=== PATIENT | female | born 1980 | race Caucasian/White ===

== ENCOUNTER 2021-12-23 19:08 | Outpatient (REF) | payer OTHER, SELFPAY | END 2021-12-23 19:09 | disposition home or self-care (01) | LOC: LBN 19:08 | PROVIDERS: Visit Provider Physician Assistant | DX: J02.9 Acute pharyngitis, unspecified (principal) | CPT/HCPCS: 87070 ==

== ENCOUNTER 2022-05-28 10:50 | Outpatient (REF) | payer OTHER, SELFPAY ==
[2022-05-28 13:38] LABS: Bilirubin Negative (Negative); Blood Moderate (Negative); Clarity Cloudy (Clear); Glucose Negative (Negative); Ketones Negative (Negative); Leukocyte Esterase Trace (Negative); Nitrite Negative (Negative); Urobilinogen 0.2 mg/dL (Up to 0.2); pH 8.5 (5-8)
[2022-05-28 13:49] LABS: Bacteria Few HPF (Negative); C & S Indicated? Yes; Casts 0-2 Hyaline LPF (Negative); Crystals Few Amorphous HPF (Negative); Epithelial Cells Few HPF (Negative); Mucus Trace (Negative); RBC >50 HPF (0-2)
== END 2022-05-28 10:51 | disposition home or self-care (01) ==
LOC: LBN 10:50
PROVIDERS: Visit Provider Physician Assistant
DX: R39.89 Other symptoms and signs involving the genitourinary system (principal); R35.0 Frequency of micturition; R30.0 Dysuria; N39.0 Urinary tract infection, site not specified
CPT/HCPCS: 81003; 81015; 87086

== ENCOUNTER 2022-08-23 02:06 | Outpatient (CLI) | payer OTHER, SELFPAY ==
[2022-08-23 14:47] LABS: Abs Immature Grans 0.03 10^3/uL (0.0-0.06); Absolute Basophil Count 0.03 10^3/uL (0.0-0.2); Absolute Eosinophil Count 0.09 10^3/uL (0.0-0.7); Absolute Lymphocyte Count 1.18 10^3/uL (1.2-3.4); Absolute Monocyte Count 0.51 10^3/uL (0.1-0.8); Absolute Neutrophil Count 5.89 10^3/uL (1.2-6.7); Basophils % 0.4; Eosinophils % 1.2; HCT 33.6 % (36.0-46.0); HGB 11.8 g/dL (11.2-15.7); Immature Grans % 0.4; Lymphocytes % 15.3; MCH 31.6 pg (27.0-33.0); MCHC 35.1 % (32.0-36.0); MCV 90 fL (80-95); MPV 10.3 fL (8.0-11.0); Monocytes % 6.6; Neutrophils % 76.1; Platelet Count 170 10^3/uL (130-400); RBC 3.73 10^6/uL (3.93-5.22); RDW 12.3 % (11.7-14.6); RDW-SD 40.3 fL; WBC 7.73 10^3/uL (4.4-10.8)
[2022-08-24 10:06] LABS: HIV-1/2 Ag & Ab Screen Negative (Negative)
[2022-08-24 10:11] LABS: Hepatitis C Ab w Rflx HCV PCR Negative (Negative)
[2022-08-24 10:51] LABS: Hepatitis B Surface Ag Negative (Negative)
[2022-08-24 11:37] LABS: Varicella IgG Antibody Positive (See Note)
[2022-08-24 11:40] LABS: Rubella IgG Ab (UVM) Positive (See Note)
[2022-08-26 15:20] LABS: Syphilis IgG w/Reflex Nonreactive (Nonreactive)
== END 2022-08-23 02:07 | disposition home or self-care (01) ==
LOC: LBO 02:09
PROVIDERS: Advanced Practice Midwife; Visit Provider Advanced Practice Midwife
DX: Z3A.10 10 weeks gestation of pregnancy; O09.521 Supervision of elderly multigravida, first trimester
CPT/HCPCS: 36415; 82306; 86787; 86803; 86850; 86900; 86901; 87340; 87389; 85025; 86762; 86780

== ENCOUNTER 2022-08-23 14:23 | Outpatient (REF) | payer OTHER, SELFPAY ==
[2022-08-23 14:53] LABS: *AMPHETAMINES SCREEN URINE Negative (Negative); *BARBITURATES SCREEN URINE Negative (Negative); *BENZODIAZEPINES SCREEN URINE Negative (Negative); Cannabinoids THC Negative (Negative); Cocaine Screen,Urine Negative (Negative); METHADONE URINE SCREEN Negative (Negative); OPIATES URINE SCREEN Negative (Negative); Tricyclic Antidepressants Negative (Negative)
[2022-08-30 19:31] LABS: Buprenorphine Negative ng/mL (Cutoff: 5.0); Norbuprenorphine Negative ng/mL (Cutoff: 2.5)
== END 2022-08-23 14:24 | disposition home or self-care (01) ==
LOC: LBN 14:23
PROVIDERS: Visit Provider Advanced Practice Midwife
DX: Z34.91 Encounter for supervision of normal pregnancy, unspecified, first trimester (principal); Z3A.10 10 weeks gestation of pregnancy
CPT/HCPCS: 80307; 80348; 87086

== ENCOUNTER 2022-08-26 15:02 | Emergency (ER) | payer OTHER, SELFPAY ==
[2022-08-26 15:04] VITALS: BP 113/72; PULSE 88; RESP 20; TEMP 36.9; O2SAT 99
--- NOTE | 2022-08-26 15:31 | ED.GENADUL_ITS ---
Discharge Plan Disposition Patient Disposition: Home Condition: Stable Discharge Details Clinical Impression: Strain of lumbar paraspinous muscle Primary Care Provider: Unknown,Unknown ED Provider: Ekaterina Oh Home Meds and New Rx's Prescriptions: New cyclobenzaprine 10 mg tablet 10 mg PO TID PRN (Reason: muscle spasm) Qty: 10 0RF No Action PNV 119-iron fum-folic acid 29 mg iron- 1 mg tablet PO Fish Oil 100-160-1,000 mg capsule PO 1XD Patient Comments: 08/01/22- pt unsure of dose Discharge Instructions Instructions: Low Back Strain (ED) Additional Instructions: Alternate ice and heat. No evidence of blood or urine today. Please take Tylenol as needed with food every 4-6 hours. Use the Flexeril as directed. You may also get lidocaine patches which you can obtain [id number]. It Follow up with primary care provider in 3-5 days. Return to ED sooner if any worsening or concerns. Increase oral fluids. Discharge Data Discharge Date/Time-TO BE ENTERED AT DEPARTURE: 08/26/22 16:54 Medical Decision Making 41-year-old female 3 para 1 approximately 11 weeks presents to the ER with chief complaint of right-sided flank pain which is acutely worsened since this morning. Patient reports that she thought a few days ago she may have pulled her back and then this morning was putting on some yoga pants when she had acute increase in pain. Worse when she moves. She describes it as sharp and shooting. Denies any problems urinating or burning with urination no vaginal bleeding discharge denies any nausea vomiting diarrhea. She does have a history of nausea with this but that has been lessening. She has been taking ibuprofen with little to no relief. Patient has had care for this . At this time urinalysis, Tylenol lidocaine patch and Flexeril ordered. Will consider outpatient ultrasound if blood in urine to rule out kidney stone. Differential diagnosis includes but not limited to UTI, pyelonephritis, musculoskeletal strain, kidney stone, Urinalysis shows no red blood cells no blood trace protein trace ketones no leukocytes or nitrites. This rules out UTI kidney stone most likely strain. Patient reevaluation, she reports feeling somewhat better. History of urinalysis results. They do not feel the elevated this time. We will give the Flexeril prescription for Flexeril. Discussed home care instructions verbalized understanding. This text was generated using [employer] system, please disregard any oddities of phrase or misspellings. HPI General Mode of arrival: ambulatory . Date/Time Provider Initiated Documentation: 08/26/22 15:17 . Limitations to Documentation: no limitations . Information obtained by: patient, RN notes reviewed and old records reviewed . HPI Narrative: 41-year-old female 3 para 1 approximately 11 weeks presents to the ER with chief complaint of right-sided flank pain which is acutely worsened since this morning. Patient reports that she thought a few days ago she may have pulled her back and then this morning was putting on some yoga pants when she had acute increase in pain. Worse when she moves. She describes it as sharp and shooting. Denies any problems urinating or burning with urination no vaginal bleeding discharge denies any nausea vomiting diarrhea. She does have a history of nausea with this but that has been lessening. She has been taking ibuprofen with little to no relief. Patient has had care for this . Related Data Home Medications Medication Instructions Recorded Confirmed omega 4-ntw-lwh-fish oil 100 cap PO 1XD 08/01/22 08/01/22 mg-160 mg-1,000 mg capsule (Fish Oil) vitamins no.119-iron tab PO 08/01/22 08/23/22 fumarate 29 mg-folic acid 1 mg tablet cyclobenzaprine 10 mg tablet 10 mg PO TID PRN muscle spasm #10 08/26/22 tabs Previous Rx's Medication Instructions Recorded cyclobenzaprine 10 mg tablet 10 mg PO TID PRN muscle spasm #10 08/26/22 tabs Allergies Allergy/AdvReac Type Severity Reaction Status Date / Time No Known Allergies Allergy Verified 08/26/22 15:11 General Stated Complaint: FlankPain EARNEST: 3 Review of Systems All systems reviewed & are unremarkable except as noted in HPI and below Musculoskeletal Musculoskeletal: Reports back pain PFSH All Active Problems (Updated 08/26/22 @ 16:28 by Ekaterina Oh NP) Strain of lumbar paraspinous muscle (Acute) History of shingles (Acute) on her face, 2019 (Acute) Dental root implant present (Acute) no anesthesia no problems Medical History (Updated 08/26/22 @ 16:28 by Ekaterina Oh NP) Missed menses Family History Maternal Grandfather Stroke Osteoporosis Parkinson disease Paternal Grandfather Stroke Hypertension Paternal Aunt Breast cancer Social History Smoking/Tobacco Use Status: Former Tobacco Use Quit Date: 07/18/22 Smoking risk assessment performed?: Yes Alcohol Intake: former Substance use type: former substance user Date of last use: marijuana several times weekly until + UPT Adopted: No Caregiver/Support person: No Foster care: No Household members: spouse and children Housing: apartment Number of Children: 1 Do you need help understanding health information?: Never Pets and animals: Yes Pets and animals: dog(s) Sexually active: Yes Do you think of yourself as: straight/heterosexual What is your relationship status?: living with partner How often do you talk on the phone with friends or family?: twice per week How often do you get together with friends or relatives?: twice per week Panel score (0-1 are the most socially isolated patients): 2 What type of physical activity do you participate in: walking and yoga Duration: 30-45 minutes/day Special deisy needs: No Seatbelt use: always Helmet use: Yes Drive intox 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 Date GA/Weeks # Preg Succ Route Wgt Sex Labor Lgth Anesth esia Location [facility] 10/16/15 37 No Yes vaginal 3033.399 g Male 12 [facility] Delivery Date: 10/16/15 Last Updated by: Ines Mccormick Nmsalena , unmedicated labor, Gregory Exam Narrative Exam Narrative: Constitutional: Alert and oriented x3. Appears stated age. Normal body habitus. Head: Normocephalic, no trauma. Eyes: Pupils PERRL, Red reflex noted, EOM's intact. Eyelids symmetrical without lesions, discharge, or swelling. ENT: Bilateral TM's WNL, External ear normal to inspection, no mastoid TTP, swelling, or erythema, Nasal turbinates WNL, no nasal discharge. Normal dentition, Posterior pharynx WNL, no exudate. Chest: RRR, Normal S1, S2, distal pulses intact. Resp: Lungs clear to auscultation bilaterally, no wheezes, rales, or rhonchi. Abdomen: Soft, non-distended, Normoactive bowel sounds all 4 quads. Musculoskeletal: , 5/5 strength to all four extremities. Tenderness to the right flank. Supraspinous tenderness no midline tenderness. Skin: No suspicious rashes or lesions. Capillary refill less than 2 sec. Neurologic: Cranial nerves II-XII intact. Alert and oriented x 3. Motor: No deficits noted. Sensory: Intact bilaterally all 4 extremities. Reflexes: DTR's intact bilaterally.. Hematologic/Lymphatic: No ecchymosis, no lymphadenopathy. Course Vital Signs Vital signs: Vital Signs Temperature 36.9 C 08/26/22 15:04 Pulse 88 08/26/22 15:04 Respiratory Rate 20 08/26/22 15:04 Blood Pressure 113/72 08/26/22 15:04 Pulse Oximetry 99 08/26/22 15:04 Temperature 36.9 C 08/26/22 15:04 Temperature Source Oral 08/26/22 15:04 Pulse 88 08/26/22 15:04 Respiratory Rate 20 08/26/22 15:04 Respiratory Effort Normal 08/26/22 15:13 Blood Pressure 113/72 08/26/22 15:04 Blood Pressure Position Sitting 08/26/22 15:04 Pulse Oximetry 99 08/26/22 15:04 Oxygen Delivery Method Room Air 08/26/22 15:04 Oxygen Flow Rate 0 08/26/22 15:04 Pain Level 9 08/26/22 15:04
[2022-08-26] MEDS: Acetaminophen 325 MG TAB 650 MG PO (15:46)
[2022-08-26] MEDS: Cyclobenzaprine 10 MG TAB PO (15:47)
[2022-08-26] MEDS: Lidocaine 5% Patch 1 PATCH TP (15:47)
[2022-08-26 15:50] LABS: Bilirubin Negative (Negative); Blood Negative (Negative); Clarity Clear (Clear); Glucose Negative (Negative); Ketones Trace mg/dL (Negative); Leukocyte Esterase Negative (Negative); Nitrite Negative (Negative); Specific Gravity 1.015 (1.005-1.025); Urobilinogen 0.2 mg/dL (Up to 0.2); pH >= 9.0 (5-8)
[2022-08-26 16:18] LABS: Bacteria Rare HPF (Negative); C & S Indicated? No; Crystals Negative HPF (Negative); Epithelial Cells Rare HPF (Negative); Mucus Trace (Negative); RBC Negative HPF (0-2); WBC 0-2 HPF (0-5)
[2022-08-26] MEDS: Cyclobenzaprine 10 MG TAB, 3 TABS/BTL PO (16:53)
== END 2022-08-26 16:54 | disposition home or self-care (01) ==
PROVIDERS: Emergency Provider Registered Nurse Emergency
DX: O99.891 Other specified diseases and conditions complicating pregnancy (principal); Z3A.11 11 weeks gestation of pregnancy; O09.521 Supervision of elderly multigravida, first trimester
CPT/HCPCS: 99283; 81003; 81015; 99284

== ENCOUNTER 2022-09-20 10:49 | Outpatient (REF) | payer OTHER, SELFPAY ==
[2022-09-21 14:10] LABS: Chlamydia Result Negative (Negative); GC Result Negative (Negative)
== END 2022-09-20 10:50 | disposition home or self-care (01) ==
LOC: LBN 10:49
PROVIDERS: Visit Provider Advanced Practice Midwife
DX: Z34.92 Encounter for supervision of normal pregnancy, unspecified, second trimester (principal); Z3A.14 14 weeks gestation of pregnancy; Z11.3 Encounter for screening for infections with a predominantly sexual mode of transmission
CPT/HCPCS: 87491; 87591

== ENCOUNTER 2022-11-30 12:13 | Outpatient (REF) | payer OTHER, SELFPAY | END 2022-11-30 12:14 | disposition home or self-care (01) | LOC: LBN 12:13 | PROVIDERS: Visit Provider Family Medicine | DX: K52.9 Noninfective gastroenteritis and colitis, unspecified (principal); R19.7 Diarrhea, unspecified | CPT/HCPCS: 87329 ==

== ENCOUNTER 2022-12-27 04:07 | Outpatient (CLI) | payer OTHER, SELFPAY ==
[2022-12-27 10:57] LABS: Glucose,1 Hr (Glucola) 89 mg/dL (80-140)
[2022-12-27 10:59] LABS: HCT 36.7 % (36.0-46.0); HGB 12.4 g/dL (11.2-15.7); MCH 31.8 pg (27.0-33.0); MCHC 33.8 % (32.0-36.0); MCV 94 fL (80-95); MPV 10.6 fL (8.0-11.0); Platelet Count 155 10^3/uL (130-400); RDW 13.3 % (11.7-14.6); RDW-SD 45.2 fL; WBC 7.96 10^3/uL (4.4-10.8)
== END 2022-12-27 04:08 | disposition home or self-care (01) ==
LOC: LBO 04:08
PROVIDERS: Visit Provider Advanced Practice Midwife
DX: Z34.93 Encounter for supervision of normal pregnancy, unspecified, third trimester (principal)
CPT/HCPCS: 36415; 82950; 85027

== ENCOUNTER 2023-01-28 02:03 | Outpatient (CLI) | payer OTHER, SELFPAY ==
--- NOTE | 2023-01-28 07:45 | DI.US_ITS ---
Exam(s) US OB EVERETTE WEIGHT EXAM: US OB EVERETTE WEIGHT CLINICAL HISTORY: interval growth,advanced maternal age,O09.522. TECHNIQUE: Transabdominal obstetrical ultrasound performed. COMPARISON: US POCUS EXAM from 08/01/2022 FINDINGS: Number of fetuses: 1 position: CEPHALIC with the spine located posteriorly. Placental location: There is a grade 2 anterior placenta. No evidence of previa. BIOMETRIC DATA: BPD: 8.84cm, 35weeks 5days. This is greater than the 97th percentile. HC: 33.47cm, 38weeks 2days. This is greater than the 97th percentile. AC: 29.67cm, 33weeks 5days FL: 6.36cm, 32weeks 6days EFW: 2,344.56g, 5lb 4.05oz, 74.7% Composite Age: 35weeks 1day TREVOR: 03/03/2023 Heart Rate: 130bpm Amniotic fluid index: 26.82cm. The EVERETTE suggest polyhydramnios. IMPRESSION: 1. Single live intrauterine gestation as above. 2. Estimated weight is 2345gms. This is the 75th percentile. 3. Amniotic fluid index is 26.8 cm. This is suggestive of polyhydramnios. DATA REPOSITORY:
[2023-01-28 12:12] VITALS: BP 113/68; PULSE 55; TEMP 36.6
== END 2023-01-28 12:19 | disposition home or self-care (01) ==
LOC: DI 02:03
PROVIDERS: Visit Provider Advanced Practice Midwife
DX: O09.522 Supervision of elderly multigravida, second trimester (principal)
CPT/HCPCS: 76816

== ENCOUNTER 2023-01-28 11:26 | Outpatient (CLI) | payer OTHER, SELFPAY ==
[2023-01-28 12:34] VITALS: BP 113/68; PULSE 55; TEMP 36.6
[2023-01-28 12:38] VITALS: BP 113/68; PULSE 55; TEMP 36.6
--- NOTE | 2023-01-28 12:38 | W.OBNST ---
Date of service: 01/28/23 Time of Service: 12:38 NST Evaluation Reason for NST Reasons for Nonstress Test: POLYHYDRAMNIOS Gestational Age Gestational Age in Weeks and Days: 32 Weeks and 5Days Test and Monitor Explained Test/Monitor Explained: Test Explained, Monitor Explained and Patient Verbalized Understanding Vital Signs Blood Pressure: 113/68 Pulse: 55 Temperature: 97.9 F Urine Results Urine Protein: Negative Urine Ketones: Negative Urine Glucose: Negative Urine Blood: Negative NST Information Date on Monitor: 01/28/23 Time on Monitor: 11:26 Date off Monitor: 01/28/23 Time off Monitor: 12:08 Total Time on Monitor: 42 NST Interventions: PO Hydration and Notify Provider Contraction Frequency: 0 NST Evaluation Patient States Movement: Present FHR Baseline: 135 Variability: Moderate 6-25 bpm Accelerations: 15x15 Decelerations: None NST Results: Reactive Note Ultrasound Done: N/A. NST Note Note: Weekly NST's Repeat EVERETTE in 2-3 wks. NST Reviewed and Verified by: Ines Mccormick
== END 2023-01-28 12:20 ==
LOC: BCD 11:28 → OBS 11:28
PROVIDERS: Visit Provider Advanced Practice Midwife
DX: O40.3XX1 Polyhydramnios, third trimester, fetus 1 (principal); Z3A.32 32 weeks gestation of pregnancy
CPT/HCPCS: 59025

== ENCOUNTER → 2023-02-04 03:21 | Outpatient (CLI) | payer OTHER, SELFPAY ==
--- NOTE | 2023-02-04 07:15 | DI.US_ITS ---
Exam(s) US OB EVERETTE WEIGHT EXAM: US OB EVERETTE WEIGHT CLINICAL HISTORY: f/u everette,o40.3XX0,POLYHYDRAMNIOS. TECHNIQUE: Transabdominal obstetrical ultrasound was performed. COMPARISON: US US OB EVERETTE WEIGHT from 01/28/2023 FINDINGS: There is a single viable intrauterine gestation with cardiac activity identified-143 bpm The fetus is presently in cephalic position . Amniotic fluid: There is polyhydramnios again noted with EVERETTE = 25.76 cm, similar to the prior recent study. Placental location: The placenta is anterior grade 2,with no evidence of placenta previa. Dating parameters place this at approximately 35 weeks and 6 days gestational age, implying TREVOR of 03/05/2023. BPD measures 37 weeks and 0 days HC measures 37 weeks and 3 days AC measures 35 weeks and 0 days FL measures 34 weeks and 0 days Estimated weight is 2608 gm-5 pounds 12 ounces Fetus is at the 78th percentile on the Hadlock scale. IMPRESSION:: Viable 3rd trimester gestation, as described above. Polyhydramnios is again evident. DATA REPOSITORY:
== END ==
PROVIDERS: Visit Provider Advanced Practice Midwife
DX: O09.523 Supervision of elderly multigravida, third trimester (principal); O40.3XX0 Polyhydramnios, third trimester, not applicable or unspecified
CPT/HCPCS: 76816

== ENCOUNTER 2023-02-04 08:53 | Outpatient (CLI) | payer OTHER, SELFPAY ==
[2023-02-04 09:18] VITALS: BP 120/68; PULSE 81
[2023-02-04 10:10] VITALS: BP 120/68; PULSE 81; TEMP 36.4
--- NOTE | 2023-02-04 10:47 | W.OBNST ---
Date of service: 02/04/23 Time of Service: 10:48 NST Evaluation Reason for NST Reasons for Nonstress Test: POLYHYDRAMNIOS Gestational Age Gestational Age in Weeks and Days: 33 Weeks and 5Days Test and Monitor Explained Test/Monitor Explained: Test Explained, Monitor Explained and Patient Verbalized Understanding Vital Signs Blood Pressure: 120/68 Pulse: 81 Temperature: 97.5 F Urine Results Urine Protein: Negative Urine Ketones: Negative Urine Glucose: Negative Urine Blood: Negative NST Information Time on Monitor: 09:16 Date off Monitor: 02/04/23 Time off Monitor: 09:42 NST Interventions: Notify Provider Contraction Frequency: 0 NST Evaluation Patient States Movement: Present FHR Baseline: 145 Variability: Moderate 6-25 bpm Accelerations: 15x15 Decelerations: None NST Results: Reactive Note Ultrasound Done: N/A. NST Note Note: Weekly NST due to polyhydramnios. Reactive NST US today. EFW 5-12, EVERETTE 25.76 Return to office and NST in 1 weeks. NST Reviewed and Verified by: Frieda Berger
[2023-02-04 10:48] VITALS: BP 120/68; PULSE 81; TEMP 36.4
== END 2023-02-04 09:50 | disposition home or self-care (01) ==
LOC: BCD 08:54 → OBS 09:12
PROVIDERS: Visit Provider Advanced Practice Midwife
DX: O40.3XX1 Polyhydramnios, third trimester, fetus 1 (principal); Z3A.34 34 weeks gestation of pregnancy
CPT/HCPCS: 59025

== ENCOUNTER 2023-02-11 09:01 | Outpatient (CLI) | payer OTHER, SELFPAY ==
[2023-02-11 10:09] VITALS: BP 120/72; PULSE 73; TEMP 36.7
[2023-02-11 10:39] VITALS: BP 120/72; PULSE 73
--- NOTE | 2023-02-15 09:33 | W.OBNST ---
Date of service: 02/11/23 Time of Service: 11:38 NST Evaluation Reason for NST Reasons for Nonstress Test: POLYHYDRAMNIOS Gestational Age Gestational Age in Weeks and Days: 35 Weeks and 0Days Test and Monitor Explained Test/Monitor Explained: Test Explained, Monitor Explained and Patient Verbalized Understanding Vital Signs Blood Pressure: 120/72 Pulse: 73 Temperature: 98.1 F NST Information Date on Monitor: 02/11/23 Time on Monitor: 10:10 Date off Monitor: 02/11/23 Time off Monitor: 10:40 Total Time on Monitor: 30 NST Interventions: PO Hydration NST Evaluation Patient States Movement: Present FHR Baseline: 130 Variability: Moderate 6-25 bpm Accelerations: 15x15 Decelerations: None NST Results: Reactive Note Ultrasound Done: N/A. NST Note Note: NST is reactive and reassuring. RTO as scheduled. NST Reviewed and Verified by: Frieda Cazares
[2023-02-15 09:34] VITALS: BP 120/72; PULSE 73; TEMP 36.7
== END 2023-02-11 10:40 | disposition home or self-care (01) ==
LOC: BCD 09:01 → OBS 10:08
PROVIDERS: Visit Provider Advanced Practice Midwife
DX: O40.3XX0 Polyhydramnios, third trimester, not applicable or unspecified (principal); O09.513 Supervision of elderly primigravida, third trimester; Z3A.35 35 weeks gestation of pregnancy
CPT/HCPCS: 59025

== ENCOUNTER → 2023-02-18 01:30 | Outpatient (CLI) | payer OTHER, SELFPAY ==
--- NOTE | 2023-02-18 07:15 | DI.US_ITS ---
Exam(s) US OB EVERETTE WEIGHT EXAM: US OB EVERETTE WEIGHT CLINICAL HISTORY: polyhydramnios,O34.3XX0. TECHNIQUE: Transabdominal obstetrical ultrasound performed. COMPARISON: US US OB EVERETTE WEIGHT from 02/04/2023 FINDINGS: Number of fetuses: 1 position: CEPHALIC Placental location: There is a grade 2 anterior placenta. No evidence of previa. BIOMETRIC DATA: BPD: 9.28cm, 37weeks 5days HC: 35.09cm, 40weeks 6days AC: 32.33cm, 36weeks 2days FL: 6.91cm, 35weeks 3days EFW: 3,006.05g, 6lb 10.73oz, 76.7% Composite Age: 37weeks 4days TREVOR: 03/07/2023 Heart Rate: 129bpm Amniotic fluid index: 34.07cm. Findings consistent with polyhydramnios. IMPRESSION: 1. Single live intrauterine gestation as above. 2. Estimated weight is 3006gms. This is the 77th percentile. 3. Amniotic fluid index is 34 cm. Polyhydramnios is evident. DATA REPOSITORY:
== END ==
PROVIDERS: Visit Provider Advanced Practice Midwife
DX: O40.3XX0 Polyhydramnios, third trimester, not applicable or unspecified (principal); Z34.93 Encounter for supervision of normal pregnancy, unspecified, third trimester
CPT/HCPCS: 76816

== ENCOUNTER 2023-02-18 05:42 | Outpatient (CLI) | payer OTHER, SELFPAY ==
[2023-02-18 09:21] VITALS: BP 109/67; PULSE 74; TEMP 36.8
[2023-02-18 09:33] VITALS: BP 109/67; PULSE 74
--- NOTE | 2023-02-18 10:44 | W.OBNST ---
Date of service: 02/18/23 Time of Service: 10:44 NST Evaluation Reason for NST Reasons for Nonstress Test: POLYHYDRAMNIOS Gestational Age Gestational Age in Weeks and Days: 35 Weeks and 5Days Test and Monitor Explained Test/Monitor Explained: Test Explained, Monitor Explained and Patient Verbalized Understanding Vital Signs Blood Pressure: 109/67 Pulse: 74 Temperature: 98.2 F NST Information Date on Monitor: 02/18/23 Time on Monitor: 09:15 Date off Monitor: 02/18/23 Time off Monitor: 10:36 Total Time on Monitor: 81 NST Interventions: PO Hydration NST Evaluation Patient States Movement: Present FHR Baseline: 135 Variability: Moderate 6-25 bpm Accelerations: 15x15 Decelerations: None NST Results: Reactive Note Ultrasound Done: N/A. NST Note Note: EVERETTE in the DI today was 34 Will recheck EVERETTE in the center next week after NST 02/26 Plan 1 hr glucola this week Dr. Son NST Reviewed and Verified by: Ines Mccormick
[2023-02-18 10:45] VITALS: BP 109/67; PULSE 74; TEMP 36.8
== END 2023-02-18 10:37 | disposition home or self-care (01) ==
LOC: BCD 05:51 → OBS 09:20
PROVIDERS: Visit Provider Advanced Practice Midwife
DX: O40.3XX0 Polyhydramnios, third trimester, not applicable or unspecified (principal); O09.523 Supervision of elderly multigravida, third trimester; Z3A.36 36 weeks gestation of pregnancy
CPT/HCPCS: 59025

== ENCOUNTER 2023-02-20 07:22 | Outpatient (CLI) | payer OTHER, SELFPAY ==
[2023-02-20] VITALS (18 sets, daily range): BP systolic 103; BP diastolic 67; PULSE 57–81; RESP 16; TEMP 36.3; O2SAT 87–99
--- NOTE | 2023-02-20 08:43 | PDOC.NST_ITS ---
Date of service: 02/20/23 Time of Service: 08:43 NST Evaluation Reason for NST Reasons for Nonstress Test: POLYHYDRAMNIOS Gestational Age Gestational Age in Weeks and Days: 36 Weeks and 0Days Test and Monitor Explained Test/Monitor Explained: Test Explained Vital Signs Blood Pressure: 103/67 Pulse: 62 NST Information Date on Monitor: 02/20/23 Time on Monitor: 08:00 Date off Monitor: 02/20/23 Time off Monitor: 08:20 Total Time on Monitor: 20 NST Interventions: None Contraction Frequency: 1-6 NST Evaluation Patient States Movement: Present FHR Baseline: 130 Variability: Moderate 6-25 bpm Accelerations: 15x15 Decelerations: None NST Results: Reactive Note Ultrasound Done: N/A. NST Note Note: Nikita is here for NST due to some increased SOB. She walked into hospital with quality analyst/technical writer from parking lot at a normal pace and talking without dyspnea. She appears to be breathing easily at rest. SAO2 98% on room air. Will do 1 hour glucose and we discussed polyhydramnios and it's mechanical effect on thoracic cage / lungs and that she may need to move more slowly. We also discussed signs of respiratory distress and to be seen urgently. Will keep scheduled appointments and be discharged to home following blood draw today. I did review these findings today with Dr. Son who agrees with this plan. MIGUEL NST Reviewed and Verified by: Frieda Cazares
[2023-02-20 09:36] LABS: Glucose,1 Hr (Glucola) 108 mg/dL (80-140)
== END 2023-02-20 09:23 ==
LOC: BCD 07:24 → OBS 07:56
PROVIDERS: Visit Provider Advanced Practice Midwife
DX: O40.3XX0 Polyhydramnios, third trimester, not applicable or unspecified (principal); O09.523 Supervision of elderly multigravida, third trimester; Z3A.36 36 weeks gestation of pregnancy
CPT/HCPCS: 36415; 82950; 59025

== ENCOUNTER 2023-02-26 08:02 | Outpatient (CLI) | payer OTHER, SELFPAY ==
[2023-02-26 10:03] VITALS: BP 113/72; PULSE 93; TEMP 36.9
[2023-02-26 10:06] VITALS: BP 113/72; PULSE 93
--- NOTE | 2023-02-26 11:45 | W.OBNST ---
Date of service: 02/26/23 Time of Service: 11:46 NST Evaluation Reason for NST Reasons for Nonstress Test: POLYHYDRAMNIOS Gestational Age Gestational Age in Weeks and Days: 36 Weeks and 6Days Test and Monitor Explained Test/Monitor Explained: Test Explained, Monitor Explained and Patient Verbalized Understanding Vital Signs Blood Pressure: 113/72 Pulse: 93 Temperature: 98.4 F NST Information Date on Monitor: 02/26/23 Time on Monitor: 10:04 Date off Monitor: 02/26/23 Time off Monitor: 10: Total Time on Monitor: 22 NST Interventions: PO Hydration Contraction Frequency: irritablility NST Evaluation Patient States Movement: Present FHR Baseline: 130 Variability: Moderate 6-25 bpm Accelerations: 15x15 Decelerations: None NST Results: Reactive Note Ultrasound Done: EVERETTE Indication: Polyhydraminos Total EVERETTE: 29 Other Pertinent Findings: Heart Rate (140), Presentation (cephalic, ROP) and Placental Location (anterior) Coding for EVERETTE w/NST: Completed Exam. NST Note Note: RTO 1 wk for repeat NST and EVERETTE Scheduled for IOL @ 39 wks on 03/13/23 NST Reviewed and Verified by: Ines Mccormick
[2023-02-26 11:47] VITALS: BP 113/72; PULSE 93; TEMP 36.9
== END 2023-02-26 11:46 ==
LOC: BCD 08:06 → OBS 09:42
PROVIDERS: Visit Provider Advanced Practice Midwife
DX: O40.3XX0 Polyhydramnios, third trimester, not applicable or unspecified (principal); Z3A.36 36 weeks gestation of pregnancy
CPT/HCPCS: 76815; 59025

== ENCOUNTER 2023-03-05 07:14 | Outpatient (CLI) | payer OTHER, SELFPAY ==
[2023-03-05 09:53] VITALS: BP 113/71; PULSE 59; TEMP 36.5
[2023-03-05 10:10] VITALS: BP 113/71; PULSE 59
--- NOTE | 2023-03-05 10:36 | W.OBNST ---
Date of service: 03/05/23 Time of Service: 10:37 NST Evaluation Reason for NST Reasons for Nonstress Test: POLYHYDRAMNIOS Gestational Age Gestational Age in Weeks and Days: 37 Weeks and 6Days Test and Monitor Explained Test/Monitor Explained: Test Explained, Monitor Explained and Patient Verbalized Understanding Vital Signs Blood Pressure: 113/71 Pulse: 59 Temperature: 97.7 F Urine Results Urine Protein: Negative Urine Ketones: Negative Urine Glucose: Negative Urine Blood: Negative NST Information Date on Monitor: 03/05/23 Time on Monitor: 09:55 Date off Monitor: 03/05/23 NST Interventions: PO Hydration NST Evaluation Patient States Movement: Present FHR Baseline: 120 Variability: Moderate 6-25 bpm Accelerations: 15x15 Decelerations: None NST Results: Reactive Note Ultrasound Done: EVERETTE Indication: Polyhydraminos Largest Vertical Pocket: 7.2 Total EVERETTE: 19.8 Other Pertinent Findings: Presentation (Vertex) Coding for EVERETTE w/NST: Completed Exam. NST Note Note: ategory 1 strip, reactive NST NST Reviewed and Verified by: Sheri Catalan
[2023-03-05 10:37] VITALS: BP 113/71; PULSE 59; TEMP 36.5
--- NOTE | 2023-03-05 10:50 | W.OBNST ---
Date of service: 03/05/23 Time of Service: 10:51 NST Evaluation Reason for NST Reasons for Nonstress Test: POLYHYDRAMNIOS Gestational Age Gestational Age in Weeks and Days: 37 Weeks and 6Days Test and Monitor Explained Test/Monitor Explained: Test Explained, Monitor Explained and Patient Verbalized Understanding Vital Signs Blood Pressure: 113/71 Pulse: 59 Temperature: 97.7 F Urine Results Urine Protein: Negative Urine Ketones: Negative Urine Glucose: Negative Urine Blood: Negative NST Information Date on Monitor: 03/05/23 Time on Monitor: 09:55 Date off Monitor: 03/05/23 NST Interventions: PO Hydration NST Evaluation Patient States Movement: Present FHR Baseline: 120 Variability: Moderate 6-25 bpm Accelerations: 15x15 Decelerations: None NST Results: Reactive Note Ultrasound Done: EVERETTE Indication: Polyhydraminos Total EVERETTE: 19 Coding for EVERETTE w/NST: Completed Exam. NST Note Note: EVERETTE completed by Dr Catalan. Reactive NST NST Reviewed and Verified by: Frieda Berger
[2023-03-05 10:52] VITALS: BP 113/71; PULSE 59; TEMP 36.5
[2023-03-05 11:25] VITALS: BP 143/77; PULSE 81
== END 2023-03-05 10:50 | disposition home or self-care (01) ==
LOC: BCD 07:15 → OBS 09:52
PROVIDERS: Visit Provider Advanced Practice Midwife
DX: O40.3XX1 Polyhydramnios, third trimester, fetus 1 (principal); Z3A.37 37 weeks gestation of pregnancy
CPT/HCPCS: 76815; 59025

== ENCOUNTER 2023-03-08 07:54 | Outpatient (CLI) | payer OTHER, SELFPAY ==
[2023-03-08 08:14] VITALS: BP 107/60; PULSE 67; RESP 16; TEMP 37.1
[2023-03-08 08:28] VITALS: BP 107/60; PULSE 67; TEMP 37.1
--- NOTE | 2023-03-08 08:41 | W.OBNST ---
Date of service: 03/08/23 Time of Service: 08:41 NST Evaluation Reason for NST Reasons for Nonstress Test: POLYHYDRAMNIOS Gestational Age Gestational Age in Weeks and Days: 38 Weeks and 2Days Test and Monitor Explained Test/Monitor Explained: Test Explained Vital Signs Blood Pressure: 107/60 Pulse: 67 Temperature: 98.7 F NST Information Date on Monitor: 03/08/23 Time on Monitor: 08:15 Date off Monitor: 03/08/23 Time off Monitor: 08:35 Total Time on Monitor: 20 NST Interventions: PO Hydration NST Evaluation Patient States Movement: Present FHR Baseline: 130 Variability: Moderate 6-25 bpm Accelerations: 15x15 Decelerations: None NST Results: Reactive Note Ultrasound Done: N/A. NST Note Note: NST is reactive and reassuring. Will return for planned induction of labor or prn. GBS obtained. MIGUEL NST Reviewed and Verified by: Frieda Cazares
[2023-03-08 08:43] VITALS: BP 107/60; PULSE 67; TEMP 37.1
== END 2023-03-08 08:42 | disposition home or self-care (01) ==
LOC: BCD 07:57 → OBS 08:02
PROVIDERS: Visit Provider Advanced Practice Midwife
DX: O40.3XX1 Polyhydramnios, third trimester, fetus 1 (principal); Z3A.38 38 weeks gestation of pregnancy
CPT/HCPCS: 59025; 87081

== ENCOUNTER 2023-03-13 16:16 | Inpatient (IN) | payer OTHER, SELFPAY ==
[2023-03-13] VITALS (8 sets, daily range): BP systolic 112–132; BP diastolic 62–82; PULSE 61–76; RESP 16–18; TEMP 36.7–36.8; O2SAT 96–98
[2023-03-13 17:04] LABS: HCT 35.5 % (36.0-46.0); HGB 12.4 g/dL (11.2-15.7); MCH 32.1 pg (27.0-33.0); MCHC 34.9 % (32.0-36.0); MCV 92 fL (80-95); RBC 3.86 10^6/uL (3.93-5.22); RDW 13.5 % (11.7-14.6); RDW-SD 44.8 fL; WBC 7.77 10^3/uL (4.4-10.8)
--- NOTE | 2023-03-13 17:14 | HPE_ITS ---
Date of service: 03/13/23 Time of Service: 17:14 Assessment and Plan Assessment and plan (1) Elderly multigravida, currently : Status: Acute Assessment and plan: 1. Admitted for induciton of labor at 39 weeks gestation 2. Plan Misoprostol 25 mcg PO and reassess in 4 hours, reviewed use, risks, benefits and expected outcomes as well as potential side effects. Patient is hoping to avoid IV access but will agree to access if medically indicated. 3. CBC and type and screen obtained. 4. Sparks score 6, expect NVD. KH (2) Polyhydramnios affecting in third trimester: Status: Acute Assessment and plan: 1. Fetus is easy to palpate and last EVERETTE was 19.8, expect NVD. OB-HPI Labor/Delivery History of Present Illness Reason for Visit: ROL Chief Complaint: Scheduled Induction of Labor Indication for Induction: Polyhydramnios and Other (AMA age 42). TREVOR Calculator Estimated Delivery Date Method Current WG Current Estimate 03/20/23 LMP (Certain) 39w 0d Other Estimates 03/18/23 Ultrasound #1 39w 2d Comments: Nikita and Bridger present for induction of labor at 39 weeks gestation due to AMA age 42 and polyhydramnios. Last EVERETTE on 03/05/23 was 19.8 with single deepest pocket 7.29cm. Nikita is having some elise musa contractions without discomfort. Denies LOF or vaginal bleeding. She is hoping to avoid pitocin and would like to start with misoprostol. She is aware that if contractions get too close together or baby does not tolerate we will need to give terbutaline SQ to try to space out or stop contractions and place IV at that time and agrees to this if needed. Her desire is to have water if possible and has plan to have Power Regulator present for labor support as well. MIGUEL History of Present Expected Delivery Route/Plan - CNM FOB/ - Tadeo Boyd (2nd child together) BB yes to circ Interviewing doulas renee for support Unmedicated plan, wants access to tub & shower IOL booked for 39 wks on 03/13/23 (AMA, poly) GBS negative Specific Issues/Plan 1. Vegan diet except for fish & eggs occasionally 2. Struggled w/infertility for 2 yrs, but this is a spontaneous conception 3. AMA @ 42 yrs on TREVOR, will discuss surveillance recommendations 3a. At initial discussed cfDNA screen, declines at this time, declines AFP 3b. Accepts [facility] MFM consult and level 2 scan 3c. Level 2 scan=nml. MFM: repeat scan 32-34 wks, twice wkly NST's @ 37 wks, consider IOL 39-40 wks 4. Vit D deficient @ 27, recommended to pt to supplement 2000 units/day 5. Depression, ambivalence about @ 17 wks; accepts referral to [facility] 5a. Therapist , Sabrina Rachel in [place]. Sees her every other week. Referral made to psych services at [facility] for discussion of medication options. 5b. Sertraline 25 mg PO daily started 10/26/22 5b. Increased to 50 mg daily 11/15/22 5c. would like home nurse visits PP due to hx depression 6. Treated with Metronidazole through [facility] for Giardia 24w6d 7. would like pelvic floor PT PP 8. Polyhydramnios on growth US, Cephalic 74%, EVERETTE 26.82 at 32 wks 8a. Will do weekly NST and repeat US 02/04- EVERETTE 25.76, weight 5-12 8b. 35 week US: EFW 77th percentile, EVERETTE 34, repeat [address] Son 108 on 02/20/23, cont weekly NST/EVERETTE 8c. 03/05/23-EVERETTE 19, IOL planned for 03/13/22. Assessment: History Reviewed & Current Informed Consent Informed Consent: Induction of Labor and Risk,Benefits,Alternatives Discussed (had opportunity to ask questions and denies questions at this time) Review of Systems All systems reviewed & are unremarkable except as noted in HPI and below Musculoskeletal Comments: tightening of uterus without pain. PFS All Active Problems Elderly multigravida, currently (Acute) Polyhydramnios affecting in third trimester (Acute) Diarrhea (Acute) Gastroenteritis (Acute) History of depression (Acute) Depression (Chronic) Depression affecting (Chronic) History of shingles (Acute) on her face, 2020 (Acute) Dental root implant present (Acute) no anesthesia no problems Medical History Multigravida of advanced maternal age in second trimester Missed menses Family History Maternal Grandfather Stroke Osteoporosis Parkinson disease Paternal Grandfather Stroke Hypertension Paternal Aunt Breast cancer Social History Smoking/Tobacco Use Status: Former Tobacco Use Quit Date: 07/18/22 Smoking risk assessment performed?: Yes Alcohol Intake: never Substance use type: former substance user Date of last use: marijuana several times weekly until + UPT Adopted: No Caregiver/Support person: No Foster care: No Household members: spouse and children Housing: apartment Number of Children: 1 Do you need help understanding health information?: Never Pets and animals: Yes Pets and animals: dog(s) Sexually active: Yes Do you think of yourself as: straight/heterosexual What is your relationship status?: living with partner How often do you talk on the phone with friends or family?: twice per week How often do you get together with friends or relatives?: twice per week Panel score (0-1 are the most socially isolated patients): 2 What type of physical activity do you participate in: walking and yoga Duration: 30-45 minutes/day Special deisy needs: No Seatbelt use: always Helmet use: Yes Drive intox 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 Date GA/Weeks # Preg Succ Route Wgt Sex Labor Lgth Anesth esia Location Prov Complic 10/16/15 37 No Yes vaginal 6 lb 11 oz [facility] Delivery Date: 10/16/15 Last Updated by: Ines Mccormick Nmsalena , unmedicated, Gregory depression, therapy, no meds. Meds Allergies and Home Medications Allergies Allergy/AdvReac Type Severity Reaction Status Date / Time No Known Allergies Allergy Verified 03/13/23 17:28 Home Medications Medication Instructions Recorded Confirmed Type omega 6-exw-wel-fish oil 100 1 cap PO 1XD 08/01/22 03/05/23 History mg-160 mg-1,000 mg capsule (Fish Oil) vitamins no.119-iron 1 tab PO DAILY 08/01/22 03/05/23 History fumarate 29 mg-folic acid 1 mg tablet cholecalciferol (vitamin D3) 25 25 mcg PO DAILY 11/15/22 03/05/23 History mcg (1,000 unit) capsule sertraline 50 mg tablet 50 mg PO DAILY #30 tabs 11/15/22 03/05/23 Rx Exam Physical Exam Vital signs: Temp Pulse Resp BP Pulse Ox 98.1 F 75 16 132/82 98 03/13/23 16:40 03/13/23 16:43 03/13/23 16:40 03/13/23 16:40 03/13/23 16:40 Vital Signs Reviewed: Yes Constitutional Constitutional: no acute distress and average body habitus Detailed Labor and Delivery Exam Dilation: 1.5 Effacement (%): 60 station: -2 Position: ROP Cervix position: posterior Consistency: soft Sparks Score: Cervical Points Exam 0 1 2 3 Dilation Closed 1-2cm 3-4 cm 5-6cm Effacement 0-30% 40-50% 60-70% 80% Consistency Firm Medium Soft Station -3 -2 -1,0 +1,+2 Position Posterior Mid Anterior SPARKS Score(Cervical Ripeness Score): 6 Amniotic Membrane Status: Intact Contraction Frequency(min): 3-6 Contraction Duration(sec): 40-120 Contraction Intensity: Mild Fetus A Heart Rate Baseline: 120 Monitor Accelerations: 15 X 15 Monitor Decelerations: None Variability: Moderate (6-25 BPM) Presentation: Cephalic Categories: Category I Est. Weight: 7 lb HEENT Exam HEENT Exam: Normal (head is atraumatic, normocephalic) Neck Exam Neck Exam: Normal (visual exam) Chest/Brest/Axilla Exam Chest Exam: Normal Breast Exam Breast Exam: Not Done Respiratory Exam Respiratory Exam: Normal Cardiovascular Exam Cardiovascular Exam: Normal Abdominal Exam Abdominal Exam: Normal (size equals dates, baby is ROP) Rectal Exam Rectal Exam: Not Done Exam Exam: Normal Extremities Exam Extremities Exam: Normal Back/Spine/Pelvis Exam Back Exam: Normal Pelvis Adequate: Yes Skin Exam Skin Exam: Normal Neurological Exam Neurological Exam: Normal Psychiatric Exam Psychiatric Exam: Normal Results Results Group Beta Strep: Negative Blood Type: A+ Rubella Status: Immune Varicella Immunity: Immune Lab Results: Hep B and C neg, HIV neg, Syphilis neg, GC CT neg,early 1 hour GTT 89 and then 108 at 28 weeks, declined cfDNA or genetic testing Risk Assessment Risk for Shoulder Dystocia Historical/Initial OB: NEGATIVE FOR: Pelvic Abnormality, Pre- BMI>30, Previous Shoulder Dystocia or Previous Macrosomia 40 Weeks: NEGATIVE FOR: EFW> 4500 gms, Maternal Weight Gain >40lb or Post Dates Delivery Plan @ 40 wks: IOL at 39 weeks. MIGUEL Risk for Pre-Eclampsia Date Initiated/Initials: not indicated, JK Yes, if one or more: NEGATIVE FOR: Hx Pre-E/Gest HTN, Chronic HTN, Multiple Gestation, Pre-gestational DM, Renal Disease, Systemic Lupus or APA Syndrome Yes, if 2 or more: POSITIVE FOR: Age>= 35 yrs; NEGATIVE FOR: Nulliparity, >10yr btwn pregnancies, BMI>30, ethinicty, Mother/Sister w/ Pre-E or Previous IUGR Risk for Post- Hemorrhage Initial: NEGATIVE FOR: Multiple Gestation, Previous PPH, Known Clotting Deficiency, Grand Multiparity or Anticoagulation 40 Weeks: POSITIVE FOR: Polyhydraminios (current EVERETTE 19.8 though earlier was as high as 34cm in ); NEGATIVE FOR: Anemia, hgb<10, Low platelets (thrombocytopenia), Gestation HTN or Pre-E or EFW>4500gms Counseled re: Active Management: Yes Date/Initials: 03/13/23 KH Risks Reviewed Risks Reviewed Upon Admission: Yes (some risk for PPH, recent EVERETTE WNL. Will reassess throughout labor)
[2023-03-13] MEDS: miSOPROStol 25 MCG TAB PO ×2 (17:19→21:43)
[2023-03-13] MEDS: Zolpidem 5 MG TAB 10 MG PO (23:34)
[2023-03-14] VITALS (15 sets, daily range): BP systolic 97–125; BP diastolic 55–77; PULSE 59–88; RESP 17–18; TEMP 36.6–37.4
[2023-03-14] MEDS: miSOPROStol 25 MCG TAB PO (02:03)
--- NOTE | 2023-03-14 09:08 | W.PM.OBNL1 ---
Date of service: 03/14/23 Time of Service: 08:45 Informed Consent Informed Consent: Induction of Labor and Risk,Benefits,Alternatives Discussed (had opportunity to ask questions and denies questions at this time) Pelvic Exam Dilation: 2 Effacement (%): 80 station: -2 Cervix Position: posterior Contractions Monitor Mode: External Contraction Frequency(min): 2-3 Contraction Duration(sec): 60 Intensity: Mild/Moderate Fetus A Monitor: External (US) Heart Rate Baseline: 125 Variability: Moderate (6-25 BPM) Categories: Category I Assessment and Plan Assessment and plan (1) Encounter for induction of labor: Status: Acute Assessment and plan: 1. Minimal changes with Misoprostol 25 mcg with last dose was 0130. 2. Patient strongly prefers to avoid pitocin. Agrees to trialing a dose of Misoprostol 50 mcg PO and reassess in 4 hours. 3. I reviewed pitocin would be best option for induction but that alternatives could be adding Cook catheter and or cervidil and what we would expect from those interventions as well as risks and benefits to each. 4. Will reassess in 4 hours as indicated by maternal indications. KH Objective Abnormal lab results 03/13/23 Range/Units 16:50 RBC 3.86 L (3.93-5.22) 10^6/uL Hct 35.5 L (36.0-46.0) % Temp Pulse Resp BP Pulse Ox 98.3 F 69 18 119/77 96 03/13/23 19:58 03/14/23 09:04 03/13/23 23:32 03/14/23 09:04 03/13/23 18:36 Laboratory Results WBC 7.77 10^3/uL (4.4-10.8) 03/13/23 16:50 RBC 3.86 10^6/uL (3.93-5.22) L 03/13/23 16:50 Hgb 12.4 g/dL (11.2-15.7) 03/13/23 16:50 Hct 35.5 % (36.0-46.0) L 03/13/23 16:50 MCV 92 fL (80-95) 03/13/23 16:50 MCH 32.1 pg (27.0-33.0) 03/13/23 16:50 MCHC 34.9 % (32.0-36.0) 03/13/23 16:50 RDW 13.5 % (11.7-14.6) 03/13/23 16:50 Plt Count 10^3/uL (130-400) 03/13/23 16:50 MPV fL (8.0-11.0) 03/13/23 16:50 Patient ABO/Rh A Positive 03/13/23 16:50 Antibody Screen NEGATIVE 03/13/23 16:50 Results Hemoglobin/Hematocrit: Hgb 12.4 g/dL (11.2-15.7) 03/13/23 16:50 Hct 35.5 % (36.0-46.0) L 03/13/23 16:50 Abnormal Lab Findings: Abnormal Labs 03/13/23 16:50 RBC 3.86 L Hct 35.5 L
[2023-03-14] MEDS: miSOPROStol 25 MCG TAB 50 MCG PO (10:18)
[2023-03-14 11:27] LABS: HGB 12.4 g/dL (11.2-15.7); MCH 31.8 pg (27.0-33.0); MCHC 34.4 % (32.0-36.0); MCV 92 fL (80-95); MPV 12.1 fL (8.0-11.0); Platelet Count 150 10^3/uL (130-400); RDW 13.6 % (11.7-14.6); RDW-SD 45.3 fL; WBC 8.87 10^3/uL (4.4-10.8)
--- NOTE | 2023-03-14 14:59 | W.OBDELIVERY ---
Date of service: 03/14/23 Time of Service: 14:59 OB Labor/ Delivery Information Baby A Delivery Delivery Method: Spontaneaous (waterbirth) Presentation: Cephalic Cephalic Position: Vertex Vertex Position: Left Occipital Anterior Cord Description-Baby A: 3 Vessels and Clamped/Cut (after pulsations ceased) Amniotic Fluid: Clear Estimated Blood Loss: 350 Delivery Outcome: Liveborn Transferred: Remains with Mother Providers Nurse Arrt Technologist: Frieda Cazares Nurse: Chary Chong Nurse: Atif Matias Other: Diantdenise Labor/Delivery Information Number of Babies in Womb: 1 Steroids Given: None Reason Steroids Not Administered: N/A Group Beta Strep: Negative Antibiotics Administered: No Rubella Status: Immune Blood Type: A+ Varicella Immunity: Immune Shoulder Dystocia: No Note: Nikita presented on 03/13/23 for induction of labor due to AMA, age 42, and polyhydramnios (EVERETTE prior to induction 19.8) that had been as high as 33-34. No other complications. She recieved cervical ripening with PO Misoprostol X doses of 25 mcg and then 50 mcg on 03/14/23 at 1016. FHR tracing was CAT I throughout. Nikita had SROM at 1235 large amount of clear fluid. Contractions became strong and every 2-3 minutes about 30-40 minutes after SROM. At 1315 VE was done and bulging forewaters were palpated and VE was 6/90/-2. She had involuntary urges to push at 1336 and at 1406 VE was able to be done and she was 10cm, 100%, +1. She had entered the tub for delivery. At 1424 she delivered a live male infant over intact perineum. She brought her baby to chest and rested in water. At 1430 there was a gush of blood and cord lengthened. Placenta delivered via Moser mechanism, intact at 1432. Baby was moved from skin to skin with Mother to skin to skin with Father so Nikita could move from the tub to bed. She was chilled and blankets applied. It was noted that there was a 2cm 1st degree left labial laceration that was not bleeding and patient preferred to leave un-repaired. Fundus was firm and U-2. EBL 350cc. Baby 8 and 8. 3 vessel cord. They do not want to take their placenta home with them. Nikita plans to breast feed her son and is able to latch baby in less than 1 hour after delivery. Expect normal PP course with discharge to home in 24-48 hours. KH Stages of Labor Onset of Labor Date: 03/14/23 Onset of Labor Time: 13:00 Complete Dilatation Date: 03/14/23 Complete Dilatation Time: 14:06 Labor - Stage 1 Duration: 1 hours and 6 minutes ROM Baby A: 03/14/23 ROM Baby A: 12:35 ROM Total Time- Baby A: [id number] Infant Delivery Date-Baby A: 03/14/23 Delivery Time-Baby A: 14:24 Labor Stage 2 Duration: 18 minutes Placenta Delivery Date-Baby A: 03/14/23 Placenta Delivery Time-Baby A: 14:32 Labor-Stage 3 Duration: 8 minutes Total Length of Labor-Baby A: 1 hours and 24 minutes Placenta Status: Delivered Baby A Gender: Male Gestational Status: Term (39-41.6 wks) Gestational Age in Weeks/Days: 39 Weeks and 1 Days Score-1 Minute Interval(Baby A) Heart Rate-1 minute: 100 BPM or Greater Respiratory Effort- 1 minute: Spontaneous/Strong Cry Muscle Tone-1 minute: Active Movement Reflex Response-1 minute: Prompt Response Color-1 minute: Pallor or Cyanosis Total Score-1 minute: 8 Score-5 Minute Interval(Baby A) Heart Rate- 5 minute: 100 BPM or Greater Respiratory Effort-5 minute: Spontaneous/Strong Cry Muscle Tone-5 minute: Active Movement Reflex Response-5 minute: Prompt Response Color-5 minute: Pallor or Cyanosis Total Score- 5 minute: 8
[2023-03-14] MEDS: Hamamelis Leaf/Glycerin 100 EACH BOX PR (15:40)
[2023-03-14] MEDS: Dibucaine 1% 28 GM TUBE TP (15:40)
[2023-03-14] MEDS: Acetaminophen 325 MG TAB 650 MG PO (15:40)
[2023-03-14] MEDS: Ibuprofen 600 MG TAB PO (15:41)
[2023-03-14] MEDS: Docusate Sodium 100 MG CAP PO (16:00)
[2023-03-14] MEDS: Sertraline 50 MG TAB PO (19:49)
[2023-03-15 02:34] VITALS: BP 114/60; PULSE 65; RESP 18; TEMP 37.3
[2023-03-15] MEDS: Acetaminophen 325 MG TAB 650 MG PO ×3 (07:44→19:37)
[2023-03-15] MEDS: Ibuprofen 600 MG TAB PO ×2 (07:45→19:37)
[2023-03-15] MEDS: Docusate Sodium 100 MG CAP PO ×2 (07:45→19:38)
[2023-03-15 08:00] VITALS: BP 107/78; PULSE 65; RESP 17; TEMP 36.6; O2SAT 97
[2023-03-15 12:00] VITALS: BP 101/56; PULSE 74; RESP 16; TEMP 37.3; O2SAT 98
--- NOTE | 2023-03-15 13:54 | OBPPV_ITS ---
Date of service: 03/15/23 Time of Service: 13:54 Assessment and Plan Assessment and plan (1) Term of male : Status: Acute Assessment and plan: Caring for baby independently. Pain is managed well with oral analgesics. Voiding without difficulty. well. A - stable mother and baby , Post day 1 P - Discharge to home tomorrow. Routine post instructions. [facility] Subjective Subjective Patient comments: Pain well controlled Patient's Mood: burning with urination due to abrasions/ [place] baby status: Doing well [place] feeding status: Exclusively breast feeding Exam Physical Exam Vital signs: Temp Pulse Resp BP Pulse Ox 99.1 F 74 16 101/56 L 98 03/15/23 12:00 03/15/23 12:00 03/15/23 12:00 03/15/23 12:00 03/15/23 12:00 Constitutional Constitutional: no acute distress Respiratory Exam Respiratory Exam: Normal Cardiovascular Exam Cardiovascular Exam: Normal Fundal Exam Fundus: Below Umbilicus and Firm Exam Comments: intact perineum Extremities Exam Extremity Exam: Normal Skin Exam Skin Exam: Normal Psychiatric Exam Psychiatric Exam: Normal Results Hemoglobin/Hematocrit: Hgb 12.4 g/dL (11.2-15.7) 03/14/23 11:18 Hct 36.0 % (36.0-46.0) 03/14/23 11:18 Abnormal Lab Findings: Abnormal Labs 03/13/23 03/14/23 16:50 11:18 RBC 3.86 L 3.90 L Hct 35.5 L MPV 12.1 H
[2023-03-15 16:30] VITALS: BP 128/79; PULSE 76; RESP 16; TEMP 36.7; O2SAT 94
[2023-03-15 19:39] VITALS: BP 130/74; PULSE 77; RESP 16; TEMP 37.1; O2SAT 98
[2023-03-16 08:00] VITALS: BP 109/73; PULSE 62; TEMP 36.8
[2023-03-16] MEDS: Sertraline 50 MG TAB PO (08:06)
[2023-03-16] MEDS: Ibuprofen 600 MG TAB PO (08:07)
[2023-03-16] MEDS: Acetaminophen 325 MG TAB 650 MG PO (08:07)
--- NOTE | 2023-03-16 14:15 | W.PM.OBDISCH ---
Date of service: 03/16/23 Time of Service: 14:15 DS: Diagnosis Discharge Diagnosis (1) Term of male : Status: Acute Asessment and Plan: Caring for baby independently. Pain is managed well with oral analgesics. Voiding without difficulty. well. A - stable mother and baby, Post day 2, history of depression. P - Discharge to home today. Routine post instructions. Discussed signs of post depression. [facility] Discharge Plan Disposition Patient Disposition: Home Condition: Good Discharge Details Reason For Visit: Polyhydramnios and AMA at 39 weeks Gestation Admit Date/Time: 03/13/23 16:16 Admit Provider: Frieda Cazares Attending Provider: Frieda Cazares Primary Care Provider: Unknown,Unknown Home Meds and New Rx's Prescriptions: No Action PNV 119-iron fum-folic acid 29 mg iron- 1 mg tablet 1 tab PO DAILY Fish Oil 100-160-1,000 mg capsule 1 cap PO 1XD Patient Comments: 08/01/22- pt unsure of dose cholecalciferol (vitamin D3) 25 mcg (1,000 unit) capsule 25 mcg PO DAILY sertraline 50 mg tablet 50 mg PO DAILY Qty: 30 4RF Discharge Instructions Activity:: Activity as Tolerated Equipment/Supplies:: No Equipment Needed Diet:: As Tolerated Discharge Orders Discharge Orders: Discharge Order (Routine); Ordered 03/16/23 Ordered By: Frieda Berger OB:DS Summary Summary Vaginal Delivery Method: Spontaneaous (waterbirth) Episiotomy Description: None Laceration Extension: First Degree Contraception Discussed Contraception Discussed: Yes Contraceptive Plan: Vasectomy, Gender-Baby A: Male weight: 6 lb 13.702 oz Status at Discharge Functional status at discharge: independent ambulation Overall status at discharge: patient is back to baseline Mental Status: mental status grossly normal Speech and Movement: speech and movement normal Mood: congruent mood Affect: normal affect Quality:SDOH Health Related Social Needs: No Data to Display Exam Physical Exam Vital signs: Temp Pulse Resp BP Pulse Ox 98.2 F 62 16 109/73 98 03/16/23 08:00 03/16/23 08:00 03/15/23 19:39 03/16/23 08:00 03/15/23 19:39 Vital Signs Reviewed: Yes Constitutional Constitutional: no acute distress Respiratory Exam Respiratory Exam: Normal Cardiovascular Exam Cardiovascular Exam: Normal Fundal Exam Fundus: Below Umbilicus and Firm Rectal Exam Rectal Exam: Normal Exam Comments: intact perineum Extremities Exam Extremity Exam: Normal Skin Exam Skin Exam: Normal Psychiatric Exam Psychiatric Exam: Normal PFSH All Active Problems (Updated 03/15/23 @ 13:57 by Frieda Berger CNM) Term of male (Acute) Depression (Chronic) Depression affecting (Chronic) Medical History (Updated 03/15/23 @ 13:57 by Frieda Berger CNM) History of depression History of shingles on her face, 2020 Dental root implant present no anesthesia no problems Family History Maternal Grandfather Stroke Osteoporosis Parkinson disease Paternal Grandfather Stroke Hypertension Paternal Aunt Breast cancer Social History Smoking/Tobacco Use Status: Former Tobacco Use Quit Date: 07/18/22 Smoking risk assessment performed?: Yes Alcohol Intake: never Substance use type: former substance user Date of last use: marijuana several times weekly until + UPT Adopted: No Caregiver/Support person: No Foster care: No Household members: spouse and children Housing: apartment Number of Children: 1 Do you need help understanding health information?: Never Pets and animals: Yes Pets and animals: dog(s) Sexually active: Yes Do you think of yourself as: straight/heterosexual What is your relationship status?: living with partner How often do you talk on the phone with friends or family?: twice per week How often do you get together with friends or relatives?: twice per week Panel score (0-1 are the most socially isolated patients): 2 What type of physical activity do you participate in: walking and yoga Duration: 30-45 minutes/day Special deisy needs: No Seatbelt use: always Helmet use: Yes Drive intox 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 Date GA/Weeks # Preg Succ Route Wgt Sex Labor Lgth Anesthesia Location Prov [facility] 10/16/15 37 No Yes vaginal 6 lb 11 oz Male 12 [facility] 03/14/23 39 No Yes vaginal 6 lb 13.7 oz Male DaphneLoganHAILEY Cazares Delivery Date: 10/16/15 Last Updated by: Ines Mccormick Nml , unmedicated, Gregory depression, therapy, no meds. Delivery Date: 03/14/23 Last Updated by: Sheri Hannon LPN Presented 03/13/23 for induction of labor due to AMA and polyhydramnios; Tub delivery DS: Data Vitals/I&O Vitals and I&O: Vital Signs Temperature 98.2 F 03/16/23 08:00 Temperature Source Oral 03/16/23 08:00 Pulse 62 03/16/23 08:00 Pulse Rhythm Regular 03/16/23 08:00 Respiratory Rate 16 03/15/23 19:39 Respiratory Depth Normal 03/15/23 19:39 Blood Pressure 109/73 03/16/23 08:00 Blood Pressure Mean 85 03/16/23 08:00 Pulse Oximetry 98 03/15/23 19:39 Oxygen Delivery Method Room Air 03/13/23 16:40 Oxygen Flow Rate 0 03/13/23 16:40 Pain Level 5 03/16/23 08:07
== END 2023-03-16 13:52 | disposition home or self-care (01) | DRG 807 ==
PROVIDERS: Admitting Provider Advanced Practice Midwife; Visit Provider Advanced Practice Midwife
DX: O40.3XX0 Polyhydramnios, third trimester, not applicable or unspecified (principal); Z37.0 Single live birth; O99.344 Other mental disorders complicating childbirth; F32.A Depression, unspecified; O70.0 First degree perineal laceration during delivery; Z3A.39 39 weeks gestation of pregnancy
CPT/HCPCS: 36415; 85027; 86850; 86900; 86901; 59200; J3490

== ENCOUNTER 2023-07-04 11:24 | Outpatient (REF) | payer OTHER, SELFPAY ==
--- NOTE | 2023-07-04 11:00 | PAPFT_PTH ---
PATIENT: Nikita Boyd LOC: [facility] U#:[id number] AGE/SX: 42/F ROOM: RE07/04/[address]: Ines Mccormick CNM : 1980 BED: DIS: 07/04/2023 SPEC #: [id number] RECD: 07/04/23 18:32 STATUS: MIRELA REQ #: [id number] ANUJ: 07/04/23 11:[address]: Ines Mccormick DEPT: [facility] Cytology RECD BY: Carrie Sanchez ENTERED: 07/04/23 18:33 SP TYPE: PAPFT OTHR DR: Unknown,Unknown Tissues: 1 - CX/ENDOCX FOR PAP SMEARS Procedures: PAP THIN PREP/UVM Screening HPV DNA PROBE Comments: [id number] (CHLAMYDIA/GC)
[2023-07-05 15:01] LABS: Chlamydia Result Negative (Negative); GC Result Negative (Negative)
== END 2023-07-04 11:25 | disposition home or self-care (01) ==
LOC: LBN 11:24
PROVIDERS: Visit Provider Advanced Practice Midwife
DX: F34.1 Dysthymic disorder (principal); Z30.09 Encounter for other general counseling and advice on contraception; D26.0 Other benign neoplasm of cervix uteri
CPT/HCPCS: 87491; 87591; 88142; 87624

== ENCOUNTER 2024-01-27 19:34 | Outpatient (REF) | payer OTHER, SELFPAY ==
[2024-01-27 21:28] LABS: Bilirubin Negative (Negative); Blood Moderate (Negative); Clarity Sl Cloudy (Clear); Glucose Negative (Negative); Ketones 80 mg/dL (Negative); Leukocyte Esterase Small (Negative); Nitrite Negative (Negative); Specific Gravity >= 1.030 (1.005-1.025); Urobilinogen 0.2 mg/dL (Up to 0.2)
[2024-01-27 21:37] LABS: Bacteria Negative HPF (Negative); C & S Indicated? No/Sq. Contamination; Crystals Negative HPF (Negative); Epithelial Cells Many HPF (Negative); Mucus Heavy (Negative); RBC 20-50 HPF (0-2); WBC >50 HPF (0-5)
== END 2024-01-27 19:35 | disposition home or self-care (01) ==
LOC: LBN 19:34
PROVIDERS: Visit Provider Nurse Practitioner Family
DX: R39.9 Unspecified symptoms and signs involving the genitourinary system (principal)
CPT/HCPCS: 81003; 81015

== ENCOUNTER 2024-02-13 02:58 | Outpatient (CLI) | payer OTHER, SELFPAY ==
--- NOTE | 2024-02-13 10:10 | DI.MAMMO_ITS ---
Exam(s) MAMMO SCREENING EXAM: MAMMO SCREENING CLINICAL HISTORY: screening,z12.39, baseline. TECHNIQUE: Bilateral full field digital CC and MLO mammographic images were obtained with 3D tomosyn thesis and utilizing computer aided detection (CAD). COMPARISON: None. This is a baseline mammogram on this 43-year-old FINDINGS: Fibroglandular tissue is dense, this somewhat decreasing the sensitivity of the mammogram for finding hidden underlying lesions. There are no CAD designations. There are no new spiculated masses nor malignant appearing microcalcification groups. There is no significant architectural distortion nor skin thickening-retraction. IMPRESSION: Dense bilateral fibroglandular tissue. No obvious radiographic evidence of malignancy. BI-RADS Category 1 - Negative Breast Density - Category C - Heterogeneously dense Breast density Category C or D implies that the patient has dense breast tissue. Dense breast tissue can make it harder to find cancer on a mammogram. Dense breast tissue is also associated with an incr eased risk of breast cancer. This information about the result of the mammogram report was provided to the patient to raise their awareness. Use this report when you speak with the patient about their risks for breast cancer, which includes their family history. At that time, you may recommend additional screening tests (Ultrasoun d or MRI) as these tests may add significant information. A negative radiographic report should not delay biopsy if a dominant or clinically suspicious mass is present. Up to ten percent of cancers are not identified on mammography. A negative report may reinforce clinical impression. Adenosis and dense breasts may obscure an underlying neoplasm. False positive reports average 6 to 10%. Patient will receive a letter notifying them of these results.
--- NOTE | 2024-02-13 13:07 | DI.US_ITS ---
Exam(s) US PELVIS TRANSVAGINAL EXAM: US PELVIS TRANSVAGINAL CLINICAL HISTORY: IUD placement,uterine cramping,surveillance TECHNIQUE: Ultrasound of the pelvis was performed both transabdominal and transvaginal. COMPARISON: US POCUS EXAM from 03/05/2023 FINDINGS: UTERUS: Uterus is nongravid and anteverted. There is an IUD in satisfactory position within the endo metrial canal. Satisfactory position was confirmed with 3D rendering. Measures 8 cm length x 4 cm AP x 4.4 cm wide. There are no uterine fibroids. Endometrial thickness measures 3-4 mm. There is no fluid in the endometrial canal. CERVIX: There are no obvious nabothian cysts. RIGHT OVARY: Measures 3.9 x 2.3 x 3.1 cm No significant cysts nor masses evident in the right ovary. LEFT OVARY: Measures 0.3 x 1.4 x 1.3 cm No significant cysts nor masses evident in the left ovary. CUL-DE-SAC: There is a significant amount of fluid in the cul-de-sac adnexal regions, left more than right. IMPRESSION: 1. IUD is in satisfactory position in the endometrial canal. No other findings in the uterus. 2. No abnormal ovarian findings. 3. There is a significant amount of free fluid in the cul-de-sac and adnexal regions. Correlation with test recommended. DATA REPOSITORY:
== END 2024-02-13 03:18 ==
LOC: DI 02:58
PROVIDERS: Visit Provider Advanced Practice Midwife
DX: N94.89 Other specified conditions associated with female genital organs and menstrual cycle (principal); Z30.431 Encounter for routine checking of intrauterine contraceptive device; Z12.31 Encounter for screening mammogram for malignant neoplasm of breast; R92.333 Mammographic heterogeneous density, bilateral breasts
CPT/HCPCS: 77063; 77067; 76830; 76856

== ENCOUNTER 2024-04-12 08:30 | Emergency (ER) | payer MEDICAID, SELFPAY ==
[2024-04-12 08:34] VITALS: PULSE 96; RESP 18; TEMP 37; O2SAT 97
--- NOTE | 2024-04-12 08:47 | DI.RAD_ITS ---
Exam(s) XR CHEST 2V PA LATERAL EXAM: XR CHEST 2V PA LATERAL CLINICAL HISTORY: URI TECHNIQUE: 2D digital imaging was performed. Two views. COMPARISON: No exams were available for comparison FINDINGS: HEART: Normal size. Aorta: Not dilated. PULMONARY VASCULATURE: Normal. MEDIASTINUM: Unremarkable. LUNGS: Hyperinflated but clear. PLEURAL SPACE: No pleural effusion or pneumothorax. BONE:Unremarkable for age. SOFT TISSUES: Unremarkable. IMPRESSION: No acute abnormality. DATA REPOSITORY: RADIATION DOSE DELIVERED:
--- NOTE | 2024-04-12 08:48 | W.ED.GENAD ---
Discharge Plan Disposition Patient Disposition: Home Condition: Stable Discharge Details Clinical Impression: Influenza A Primary Care Provider: Unknown,Unknown ED Provider: Ekaterina Oh Home Meds and New Rx's Prescriptions: No Action Mirena 21 mcg/24 hr (8 yrs) 52 mg intrauterine device 1 device intrauterine ONCE Rx Instructions: as a single dose Discharge Instructions Instructions: Flu, Adult ED Additional Instructions: You have tested positive for influenza A. Please take [id number] cough and cold medicines as directed. Increase oral fluids. No evidence of pneumonia on the chest x-ray. Follow up with primary care provider in 3-5 days. Return to ED sooner if any worsening or concerns. Please take Tylenol or Ibuprofen with food every 4-6 hours as needed for pain and swelling. Stand Alone Forms: Work Release Referrals: Primary Care Provider [Outside] - 1 week Discharge Data Discharge Date/Time-TO BE ENTERED AT DEPARTURE: 04/12/24 09:36 HPI General Mode of arrival: ambulatory. Date/Time Provider Initiated Documentation: 04/12/24 08:32. Limitations to Documentation: no limitations. Information obtained by: patient, RN notes reviewed and old records reviewed. HPI Narrative: 43-year-old female presents to the ER with URI type symptoms which began 12 days ago got better and then has returned over the last 3 to 4 days. She reports headaches, fatigue night sweats, chills and decreased appetite. She also endorses left ear pain and sore throat. She does have moderate amount of cerumen impaction noted to her left ear and her tympanic membrane what I can see is slightly erythemic, however there is decreased visualization. Posterior oropharynx slightly erythemic no exudate. Lungs are clear to auscultation bilaterally she is speaking in full sentences. Related Data Home Medications ?Medication ?Instructions ?Recorded ?Confirmed levonorgestrel 21 mcg/24 hr (up to 1 device intrauterine ONCE 07/04/23 04/12/24 8 years) 52 mg intrauterine device (Mirena) Allergies Allergy/AdvReac Type Severity Reaction Status Date / Time No Known Allergies Allergy Verified 04/12/24 08:36 General Stated Complaint: RespSymp EARNEST: 4 Review of Systems All systems reviewed & are unremarkable except as noted in HPI and below Constitutional Constitutional: Reports body ache(s), Reports fatigue, Reports headache(s) and Reports night sweats ENT Ears, Nose, Mouth, and Throat: Reports headache(s) Respiratory Respiratory: Reports chest congestion and Reports cough Neurologic Neurologic: Reports headache(s) Endocrine Endocrine: Reports fatigue Exam Narrative Exam Narrative: Constitutional: Alert and oriented x3. Appears stated age. Normal body habitus. Head: Normocephalic, no trauma. Eyes: Pupils PERRL, Red reflex noted, EOM's intact. Eyelids symmetrical without lesions, discharge, or swelling. ENT: Evaluation limited on left tympanic membrane however does appear swollen erythemic, left cerumen impaction, external ear normal to inspection, no mastoid TTP, swelling, or erythema, Nasal turbinates WNL, no nasal discharge. Normal dentition, Posterior pharynx erythemic, no exudate. Uvula midline Chest: RRR, Normal S1, S2, distal pulses intact. Resp: Lungs clear to auscultation bilaterally, no wheezes, rales, or rhonchi. Abdomen: Soft, non-distended, Normoactive bowel sounds all 4 quads. Musculoskeletal: Normal gait, Moves all 4 extremities without difficulty. Skin: No suspicious rashes or lesions. Capillary refill less than 2 sec. Neurologic: Cranial nerves II-XII intact. Alert and oriented x 3. Motor: No deficits noted. Sensory: Intact bilaterally all 4 extremities. Hematologic/Lymphatic: No ecchymosis, no lymphadenopathy. Course Vital Signs Vital signs: Vital Signs Temperature 37.0 C 04/12/24 08:34 Pulse 96 H 04/12/24 08:34 Respiratory Rate 18 04/12/24 08:34 Pulse Oximetry 97 04/12/24 08:34 Temperature 37.0 C 04/12/24 08:34 Temperature Source Oral 04/12/24 08:34 Pulse 96 H 04/12/24 08:34 Respiratory Rate 18 04/12/24 08:34 Respiratory Effort Normal, Non-Labored 04/12/24 08:39 Respiratory Depth Normal 04/12/24 08:39 Blood Pressure Position Sitting 04/12/24 08:34 Pulse Oximetry 97 04/12/24 08:34 Oxygen Delivery Method Room Air 04/12/24 08:34 Oxygen Flow Rate 0 04/12/24 08:34 Pain Level 5 04/12/24 08:34 Medical Decision Making 43-year-old female presents to the ER with URI type symptoms which began 12 days ago got better and then has returned over the last 3 to 4 days. She reports headaches, fatigue night sweats, chills and decreased appetite. She also endorses left ear pain and sore throat. She does have moderate amount of cerumen impaction noted to her left ear and her tympanic membrane what I can see is slightly erythemic, however there is decreased visualization. Posterior oropharynx slightly erythemic no exudate. Lungs are clear to auscultation bilaterally she is speaking in full sentences. Fluid swab ordered in triage, chest x-ray ordered. Patient denies any possibility of she does have an IUD. Differential diagnose includes not limited to viral illness, COVID, pneumonia, sinusitis. Chest x-ray is negative no acute findings. Positive for influenza A. Given instructions and home care. This text was generated using Travergence[employer] system, please disregard any oddities of phrase or misspellings. Lab Data Lab results reviewed: Yes I reviewed the patient's lab results. Labs: Laboratory Tests Range/Units 04/12/24 08:35 COVID-19 Source Nasopharynx SARS-CoV-2 (PCR) (Negative) Negative Influenza Type A (PCR) (Negative) Positive A Influenza Type B (PCR) (Negative) Negative RSV (PCR) (Negative) Negative Quality:SDOH Health Related Social Needs: No Data to Display PFSH All Active Problems (Updated 04/12/24 @ 09:28 by Ekaterina Oh NP) Influenza A (Acute) Uterine cramping (Acute) Intrauterine device surveillance (Acute) Stress incontinence in female (Acute) Pelvic floor dysfunction in female (Acute) Encounter for care of lactating mother (Acute) Depression (Chronic) Medical History Encounter for counseling regarding initiation of other contraceptive measure Encounter for insertion of mirena IUD Term of male Depression affecting History of depression History of shingles on her face, 2020 Dental root implant present no anesthesia no problems Family History Maternal Grandfather Stroke Osteoporosis Parkinson disease Paternal Grandfather Stroke Hypertension Paternal Aunt Breast cancer Social History Smoking/Tobacco Use Status: Former Tobacco Use Quit Date: 07/18/22 Smoking risk assessment performed?: Yes Alcohol Intake: never Drug use: Occasionally Substance use type: marijuana Adopted: No Caregiver/Support person: No Foster care: No Household members: spouse and children Housing: apartment Number of Children: 1 Do you need help understanding health information?: Never Pets and animals: Yes Pets and animals: dog(s) Sexually active: Yes Do you think of yourself as: straight/heterosexual What is your relationship status?: living with partner How often do you talk on the phone with friends or family?: twice per week How often do you get together with friends or relatives?: twice per week Panel score (0-1 are the most socially isolated patients): 2 What type of physical activity do you participate in: walking and yoga Duration: 30-45 minutes/day Special deisy needs: No Seatbelt use: always Helmet use: Yes Drive intox or ride w/intox 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 Date GA/Weeks # Preg Succ Route Wgt Sex Labor Lgth Anesthesia Location [facility] 10/16/15 37 No Yes vaginal 3033.399 g Male 12 [facility] 03/14/23 39 No Yes vaginal 3109.943 g Male HAILEY Feliciano Delivery Date: 10/16/15 Last Updated by: Ines Mccormick Nml , unmedicated, Gregory depression, therapy, no meds. Delivery Date: 03/14/23 Last Updated by: Sheri Hannon LPN Presented 03/13/23 for induction of labor due to AMA and polyhydramnios; Tub delivery
--- NOTE | 2024-04-12 09:00 | DI.VRAD_ITS ---
PROCEDURE INFORMATION: Exam: XR Chest Exam date and time: 04/12/2024 8:53 AM Age: 43 years old Clinical indication: Other: Uri TECHNIQUE: Imaging protocol: Radiologic exam of the chest. Views: 2 views. COMPARISON: No relevant prior studies available. FINDINGS: Lungs: Unremarkable. No consolidation. Pleural spaces: Unremarkable. No pleural effusion. No pneumothorax. Heart/Mediastinum: Unremarkable. No cardiomegaly. Bones/joints: Unremarkable. IMPRESSION: No acute findings. Dictated and Authenticated by: Luis Dotson MD. Orderin Althea Tobar MD
[2024-04-12 09:22] LABS: COVID-19 PCR Negative (Negative); Influenza A PCR Positive (Negative); Influenza B PCR Negative (Negative); RSV PCR Negative (Negative)
[2024-04-12 09:24] LABS: Source Nasopharynx
== END 2024-04-12 09:36 | disposition home or self-care (01) ==
PROVIDERS: Emergency Medicine; Emergency Provider Registered Nurse Emergency
DX: J10.1 Influenza due to other identified influenza virus with other respiratory manifestations (principal); Z87.891 Personal history of nicotine dependence
CPT/HCPCS: 87637; 99284; 71046; 99283